=== PATIENT | female | born 1995 | race Two or more races ===

== ENCOUNTER 2021-02-04 23:21 | Emergency (ER) | payer OTHER ==
[~2021-02-04] VITALS: Ht 157.5 cm; Wt 87.1 kg
== END 2021-02-05 01:50 | disposition home or self-care (01) ==
LOC: ER 23:21
DX: O26.892 Other specified pregnancy related conditions, second trimester (principal); S20.212A Contusion of left front wall of thorax, initial encounter; Z34.02 Encounter for supervision of normal first pregnancy, second trimester; V49.9XXA Car occupant (driver) (passenger) injured in unspecified traffic accident, initial encounter; Y93.89 Activity, other specified; Y92.488 Other paved roadways as the place of occurrence of the external cause; Y99.8 Other external cause status

== ENCOUNTER 2021-04-03 20:29 | Outpatient (CLI) | payer OTHER | END 2021-04-04 15:11 | disposition home or self-care (01) | LOC: OBS/DEL 20:29 → EDBD 20:29 → OBS/DEL 20:34 | PROVIDERS: ATTEND Obstetrics & Gynecology Obstetrics | DX: O26.892 Other specified pregnancy related conditions, second trimester (principal); R10.31 Right lower quadrant pain; Z3A.23 23 weeks gestation of pregnancy ==